=== PATIENT | male | born 2000 | race Caucasian/White ===

== ENCOUNTER 2019-09-10 06:23 | Emergency (ER) | payer OTHER ==
[~2019-09-10] VITALS: Ht 190.5 cm; Wt 83.0 kg
[2019-09-10 06:25] VITALS: BP 121/71
--- NOTE | 2019-09-10 06:25 | NUR ---
TO BED # 11 AMBULATORY
--- NOTE | 2019-09-10 06:45 | NUR ---
19 YO M BIB SELF PRESENTS TO ED C/O SEVERE SORE THROAT AND CONGESTION X 5 DAYS. PT WAS SEEN IN X 2 DAYS AGO; RECEIVED AUGMENTIN, PREDNISONE AND GUIAFENESIN. PT REPORTS LITTLE RELIEF. PT REPORTS PAINFUL SWALLOWING. DENIES DIFFICULTY BREATHING. -- PT AWAKE, A/O X 4. CALM, COOPERATIVE. APPEARS UNCOMFORTABLE. NASAL CONGESTION HEARD. ANSWERS QUESTIONS WITHOUT DIFFICULTY IN CLEAR, FULL SENTENCES. -- SKIN PINK, WARM, DRY. BREATHING EVEN, UNLABORED. THROAT APPEARS SWOLLEN. PMH-- DENIES
--- NOTE | 2019-09-10 07:28 | NUR ---
REPORT GIVEN TO CAROLYN BROUSSARD.
--- NOTE | 2019-09-10 07:31 | NUR ---
Assumed patient care, concur with prior nursing assessments. Patient c/o sore throat, was seen at an and prescribed antibiotics and prednisone this past Saturday but patient verbalizing no relief of symptoms.
--- NOTE | 2019-09-10 07:46 | NUR ---
Seen and evaluated by Dr Evans, MSE completed.
[2019-09-10] MEDS ORDERED: methylPREDNISolone SS 125 MG/2 ML VIAL IM ONE (07:50)
[2019-09-10] MEDS ORDERED: cefTRIAXone 1,000 MG in LIDOCAINE MPF 1% 2.1 ML IM ONE (07:50)
--- NOTE | 2019-09-10 08:06 | NUR ---
To CT via [facility].
[2019-09-10 08:43] LABS: ANION GAP 12.7 (8-16); CARBON DIOXIDE 29.7 mmol/L (21-32); HEMATOCRIT 45.6 % (36-52); HEMOGLOBIN 15.7 g/dL (12.0-18.0); MEAN CORPUSCULAR HEMOGLOBIN 27 pg (27-31); MEAN CORPUSCULAR HGB CONC 34 g/dL (33-37); MEAN CORPUSCULAR VOLUME 77.3 fL (80-94); PLATELET COUNT (AUTO) 259 K/uL (140-450); POTASSIUM 4.4 mmol/L (3.5-5.1); RED CELL DISTRIBUTION WIDTH 13.7 % (11.6-13.7); WHITE BLOOD COUNT (AUTO) 13.7 K/uL (4.8-10.8)
[2019-09-10 09:04] LABS: ALBUMIN 3.8 g/dL (3.4-5.0); TOTAL BILIRUBIN 0.5 mg/dL (0.0-1.0)
[2019-09-10] MEDS ORDERED: IBUPROFEN 800 MG TAB PO ONE (09:05)
[2019-09-10 09:07] LABS: LYMPHOCYTES % (MANUAL) 50 % (20-46); MONOCYTES % (MANUAL) 10 % (5-12)
--- NOTE | 2019-09-10 09:17 | NUR ---
Dispo and medical decision making, DC home with instructions on Strep Throat, and prescriptions for prednisone and motrin. All instructions understood by patient well, VS WNL. Verbalized improvement in symptoms.
[2019-09-10 09:18] VITALS: BP 114/56
== END 2019-09-10 09:17 | disposition home or self-care (01) ==
LOC: MED 06:23
DX: J02.0 Streptococcal pharyngitis (principal)
CPT/HCPCS: 36415; 70490; 80053; 83605; 85025; 87040; 96372; 99284; J0696; J2001; J2930